=== PATIENT | male | born 1950 | race Caucasian/White ===

== ENCOUNTER 2022-05-05 10:03 | Outpatient (CLI) | payer MEDICARE, SELFPAY | END 2022-05-05 10:04 | disposition home or self-care (01) | LOC: AMB 05-27 11:09 | PROVIDERS: PCP Family Medicine; Visit Provider Emergency Medicine | DX: R06.09 Other forms of dyspnea (principal); R53.1 Weakness | CPT/HCPCS: A0425; A0427 ==

== ENCOUNTER 2022-05-05 10:43 | Inpatient (IN) | payer MEDICARE, SELFPAY ==
[2022-05-05] VITALS (22 sets, daily range): BP systolic 106–152; BP diastolic 66–99; PULSE 85–111; RESP 18–26; TEMP 36.3–36.6; O2SAT 91–98; BMI 28.7; BMI 31.2
--- NOTE | 2022-05-05 11:11 | CRLHL7_ITS ---
For Patients: As a result of the Century Cures Act, medical imaging exams and procedure reports are released immediately into your electronic medical record. You may view this report before your referring provider. If you have questions, please contact your health care provider. INDICATION: Shortness of breath TECHNIQUE: Chest 1 view. COMPARISON: None. FINDINGS/IMPRESSION: The heart is normal in size. There is mild pulmonary vascular congestion and interstitial edema. Evaluation is somewhat limited due to patient positioning, however there are hazy bibasilar opacities which could represent small pleural effusions, however superimposed consolidation is also a possibility. Dictated by Maya Barr MD @ 05/05/2022 12:45:47 PM Dictated by: Maya Barr MD @ 05/05/2022 12:45:53 (Electronically Signed)
[2022-05-05] MEDS: IPRAT-ALBUT 0.5-2.5 MG/3 ML NEB 1 NEB IH ×3 (11:15→23:52)
--- NOTE | 2022-05-05 11:17 | RESP.RT ---
Patient arrived via EMS, on there BiPAP on S/T mode. 15/5 pressures, FiO2 50%, SaO2 99%. Using their mask, which patient is comfortable on change to our BiPAP FiO2 wean to 30%, S/T mode, rate 4/minute, total rate 24/minute, vt 700ml, VE 14 L. Patient leak 13%. Patient lying right side down, appears comfortable. BBS diminished. Patient has Home Oxygen, and Albuterol nebulizer medications.
--- NOTE | 2022-05-05 11:22 | ED.GENADULT ---
HPI - General Adult General Date Seen: 05/05/22 Chief complaint: Shortness of Breath/Dyspnea Stated complaint: Shortness of breath Time Seen by Provider: 05/05/22 11:10 Source: patient History of Present Illness HPI narrative: This is a 71-year-old male with underlying COPD, oxygen dependent, who comes in by EMS with worsening shortness of breath. He tells me that he was seen in clinic 2 days ago, which would have been Thanksgiving. I clarify that with him and he says maybe was Saturday instead. In looking at the computer I do not actually see any visits since April 20, which would have been a couple of weeks ago. He tells me he is currently taking steroids and antibiotics which were prescribed a few days ago. He has had worsening shortness of breath. He says he has had subjective fevers, has not checked his temperature. Denies chest pain. Has had cough. He is normally on 2-3 L of oxygen, had been moved up to 5 L and was reportedly satting 70% on 5 L. He was started on CPAP by paramedics and improved quickly on that therapy. He was improved to 98% oxygenation on CPAP. Here, he is on BiPAP, 15/5 at 30% oxygen. He is breathing comfortably at the time of my exam. He feels better laying on his right side. He denies significant swelling in his legs, no unusual leg pain. He lives at home with his . Does continue to smoke. I reviewed with him what his wishes would be in terms of intubation, he says that he would not want to be on a ventilator should his condition worsen. Related Data Home Medications Medication Instructions Recorded Confirmed fluticasone propionate 50 g intranasal 04/06/22 04/06/22 mcg/actuation nasal spray,suspension Previous Rx's Medication Instructions Recorded azithromycin 250 mg tablet See Rx Instructions PO .COMPLEX #6 04/06/22 (Zithromax Z-Cody) tabs fluticasone furoate 200 1 inh inhalation QDAY #90 ea 04/06/22 mcg-vilanterol 25 mcg/dose inhalation powder (Breo Ellipta) ipratropium 0.5 mg-albuterol 3 mg 3 ml inhalation TID #360 mL 04/06/22 (2.5 mg base)/3 mL nebulization soln prednisone 50 mg tablet 50 mg PO QDAY #7 tabs 04/06/22 umeclidinium 62.5 mcg/actuation 1 inh inhalation QDAY #90 ea 04/06/22 blister powder for inhalation (Incruse Ellipta) Allergies Allergy/AdvReac Type Severity Reaction Status Date / Time No Known Drug Allergies Allergy Verified 04/06/22 09:11 Review of Systems Status of ROS: Reports: 10 or more systems reviewed and unremarkable except as noted in History and below PFSH [facility] Medical History Benign prostatic hyperplasia Chronic obstructive pulmonary disease Chronic sinusitis Tobacco use disorder Surgical History History of cataract extraction (10/2017) History of lumbar surgery (1983) Social History Smoking Status: Current every day smoker Little interest or pleasure in doing things: not at all Feeling down, depressed, or hopeless: not at all Exam Narrative: Exam Narrative: Vital signs as noted above. In general, an alert, elderly male. CPAP, breathing comfortably. Head: Normocephalic, atraumatic. Eyes: Pupils are equal reactive. Extraocular movements are full. Conjunctivae are normal. ENT: Exam limited secondary to CPAP. Neck: Supple without lymphadenopathy. Heart: Tachycardic and regular. No obvious murmur. Lungs: Breath sounds significantly diminished. No active wheezing. Abdomen: Protuberant and soft, seemingly nontender. Extremities: Well perfused. No edema. No calf tenderness. Pulses intact. Neurologic: Patient is alert and oriented to person and place. Speech is fluent. Face is symmetric. Moves all extremities equally. Affect: Normal. Skin: Warm and dry. Well perfused. Const: Vital Signs, click to edit/add: Vital Signs - 24 hr 05/05/22 10:51 05/05/22 11:12 05/05/22 11:12 Temperature 97.4 F L Pulse Rate Pulse Rate [Left P ulse Oximeter] 111 H Respiratory Rate 24 24 Blood Pressure Blood Pressure [Ri ght Upper Arm] 152/99 H Pulse Oximetry 98 95 Oxygen Delivery Me thod CPAP BiPAP Oxygen Flow Rate Fraction of Inspir ed Oxygen 30 30 05/05/22 11:12 05/05/22 12:18 05/05/22 11:11 Temperature Pulse Rate Pulse Rate [Left P ulse Oximeter] Respiratory Rate 24 Blood Pressure Blood Pressure [Ri ght Upper Arm] Pulse Oximetry 94 94 Oxygen Delivery Me thod BiPAP Oxygen Flow Rate Fraction of Inspir ed Oxygen 30 30 05/05/22 12:42 05/05/22 12:45 05/05/22 12:47 Temperature Pulse Rate 94 92 95 Pulse Rate [Left P ulse Oximeter] Respiratory Rate Blood Pressure 117/71 Blood Pressure [Ri ght Upper Arm] Pulse Oximetry 95 94 92 Oxygen Delivery Me thod Oxygen Flow Rate Fraction of Inspir ed Oxygen 05/05/22 12:51 Temperature Pulse Rate Pulse Rate [Left P ulse Oximeter] Respiratory Rate 20 Blood Pressure Blood Pressure [Ri ght Upper Arm] Pulse Oximetry 93 Oxygen Delivery Me thod Nasal Cannula Oxygen Flow Rate 2 Fraction of Inspir ed Oxygen Documenting provider has reviewed patient's vital signs: yes Course Course Hospital Course: For now will keep him maintained on BiPAP, we did decrease his oxygen percentage to 30%, oxygen saturations are now 94%. For now will maintain the settings. Labs an EKG, chest x-ray are pending. We will try giving a DuoNeb to see if we can increase air movement at all. Patient had a DuoNeb. I also ordered Solu-Medrol, Rocephin, azithromycin after reviewing his records. It does not appear that he was seen in the past few days. I did talk with him again about this as to whether he could have been seen somewhere else. I think he is just confusing his times. We maintained him on BiPAP for a period of time. Chest x-ray showed haziness in both bases by my review. Radiology read this is possible effusion versus consolidation. His influenza returned positive. He was COVID negative. Labs otherwise showed a normal white blood cell count of 9.3, hemoglobin of 15.8. Left shift with 86% neutrophils. No eosinophiles. D-dimer was elevated at 1.16, but I think with a positive influenza and likely pneumonia this is probably the cause for his elevated D-dimer. Discussed with hospitalist and at this time we are going to hold off on ordering CT scan. A blood gas showed a mildly elevated pCO2 of 56, likely not suggestive of CO2 narcosis. He is not significantly acidotic, pCO2 is 7.34. Metabolic panel is unremarkable, sodium is just a touch low at 133 potassium is normal, BUN normal, creatinine normal. LFTs are unremarkable. CRP is mildly elevated at 3. BNP is a little bit high at 795. Troponin was normal at 0.01. He did have an EKG which by my review showed a normal sinus rhythm, ventricular rate of 93 beats per minute. He does have marked T-wave and ST abnormalities in the lateral leads, with some depression and T-wave inversion however this is unchanged compared to an EKG dated . Within normal troponin and unchanged EKG I do not think this represents an acute coronary process. Patient was actually able to be weaned off of BiPAP per Respiratory therapy and is now on O2 by nasal cannula with O2 sats of 93%. He will be hospitalized for observation, antibiotics and respiratory care while we see how he does with his influenza and pneumonia. Vital Signs Vital signs: Initial Vital Signs Temperature 97.4 F L 05/05/22 10:51 Temperature Source Temporal Artery Scan 05/05/22 10:51 Pulse Rate 111 H 05/05/22 10:51 Respiratory Rate 24 05/05/22 10:51 Blood Pressure 152/99 H 05/05/22 10:51 Blood Pressure Mean 116 05/05/22 10:51 Blood Pressure Position Right Lateral 05/05/22 10:51 Pulse Oximetry 98 05/05/22 10:51 Oxygen Delivery Method 05/05/22 10:51 Vital Signs Temperature 97.4 F L 05/05/22 10:51 Pulse Rate 111 H 05/05/22 10:51 Respiratory Rate 24 05/05/22 10:51 Blood Pressure 152/99 H 05/05/22 10:51 Pulse Oximetry 98 05/05/22 10:51 Oxygen Delivery Method 05/05/22 10:51 Temperature 97.4 F L 05/05/22 10:51 Pulse Rate 95 05/05/22 12:47 Respiratory Rate 20 05/05/22 12:51 Blood Pressure 117/71 05/05/22 12:47 Pulse Oximetry 93 05/05/22 12:51 Oxygen Delivery Method 05/05/22 12:51 Oxygen Flow Rate 2 05/05/22 12:51 Fraction of Inspired Oxygen 30 05/05/22 12:18 Medical Decision Making Lab Data Labs: Lab Results 05/05/22 05/05/22 05/05/22 Range/Units 11:46 12:00 12:00 WBC 9.26 (4.50-11.00) K/uL RBC 5.25 (4.30-5.90) m/uL Hgb 15.8 (13.5-17.5) gm/dL Hct 47.4 (37.0-53.0) % MCV 90 (80-100) fL MCH 30 (26-34) pg MCHC 33 (32-36) gm/dL RDW Coeff of Kiki 12.7 (11.5-15.5) % Plt Count 245 (140-440) K/uL Neut % (Auto) 85.8 H (42.0-72.0) % Lymph % (Auto) 5.7 L (20-44) % [place] % (Auto) 7.7 (0.0-11.0) % Eos % (Auto) 0.0 (0.0-7.0) % Baso % (Auto) 0.0 (0.0-3.0) % Neut # (Auto) 7.90 H (1.7-7.0) K/uL Lymph # (Auto) 0.50 L (0.90-2.90) K/uL [place] # (Auto) 0.70 (0.00-0.90) K/UL Eos # (Auto) 0.00 (0.00-0.50) K/uL Baso # (Auto) 0.00 (0.00-0.30) K/uL Abs Immat Gran (auto) 0.07 (0.00-0.30) K/uL Imm/Tot Granulo (auto) 0.8 % D-Dimer Quant (PE/DVT) (0.00-0.50) ug/ml VBG pH (7.32-7.43) VBG pCO2 (40-50) mmHG VBG pO2 (25-47) mmHG VBG HCO3 (21-28) mmol/L Sodium 133 L (135-149) mmol/L Potassium 4.4 (3.6-5.1) mmol/L Chloride 99 (96-114) mmol/L Carbon Dioxide 29 (20-32) mmol/L BUN 21 (7-30) mg/dL Creatinine 0.7 (0.5-1.5) mg/dL Estimated Creat Clear 49.39 Estimated GFR 98 ml/min Glucose 90 (60-115) mg/dL Lactate (0.5-1.9) mmol/L Calcium 8.2 L (8.4-10.6) mg/dL Total Bilirubin (0.1-1.5) mg/dL Direct Bilirubin (0.0-0.5) mg/dL AST (12-35) U/L ALT (4-50) U/L Alkaline Phosphatase (40-150) U/L Troponin I (0.01-0.04) ng/mL C-Reactive Protein 3.0 H (0.5-1.0) mg/dL NT-Pro-B Natriuret Pep (0-125) PG/mL Total Protein (6.0-8.3) g/dL Albumin (3.3-5.0) g/dL SARS-CoV-2 (PCR) Negative SARS-CoV-2 (Negative) Influenza Type A (PCR) POSITIVE PCR FLU A A (Negative) Influenza Type B (PCR) Negative PCR FLU B (Negative) RSV (PCR) Negative PCR RSV (Negative) 05/05/22 05/05/22 05/05/22 Range/Units 12:00 12:00 12:00 WBC (4.50-11.00) K/uL RBC (4.30-5.90) m/uL Hgb (13.5-17.5) gm/dL Hct (37.0-53.0) % MCV (80-100) fL MCH (26-34) pg MCHC (32-36) gm/dL RDW Coeff of Kiki (11.5-15.5) % Plt Count (140-440) K/uL Neut % (Auto) (42.0-72.0) % Lymph % (Auto) (20-44) % [place] % (Auto) (0.0-11.0) % Eos % (Auto) (0.0-7.0) % Baso % (Auto) (0.0-3.0) % Neut # (Auto) (1.7-7.0) K/uL Lymph # (Auto) (0.90-2.90) K/uL [place] # (Auto) (0.00-0.90) K/UL Eos # (Auto) (0.00-0.50) K/uL Baso # (Auto) (0.00-0.30) K/uL Abs Immat Gran (auto) (0.00-0.30) K/uL Imm/Tot Granulo (auto) % D-Dimer Quant (PE/DVT) 1.16 H (0.00-0.50) ug/ml VBG pH 7.345 (7.32-7.43) VBG pCO2 56 H (40-50) mmHG VBG pO2 39.4 (25-47) mmHG VBG HCO3 30 H (21-28) mmol/L Sodium (135-149) mmol/L Potassium (3.6-5.1) mmol/L Chloride (96-114) mmol/L Carbon Dioxide (20-32) mmol/L BUN (7-30) mg/dL Creatinine (0.5-1.5) mg/dL Estimated Creat Clear Estimated GFR ml/min Glucose (60-115) mg/dL Lactate 1.1 (0.5-1.9) mmol/L Calcium (8.4-10.6) mg/dL Total Bilirubin 0.6 (0.1-1.5) mg/dL Direct Bilirubin 0.4 (0.0-0.5) mg/dL AST 40 H (12-35) U/L ALT 22 (4-50) U/L Alkaline Phosphatase 94 (40-150) U/L Troponin I 0.01 (0.01-0.04) ng/mL C-Reactive Protein (0.5-1.0) mg/dL NT-Pro-B Natriuret Pep 795 H (0-125) PG/mL Total Protein 6.8 (6.0-8.3) g/dL Albumin 3.9 (3.3-5.0) g/dL SARS-CoV-2 (PCR) (Negative) Influenza Type A (PCR) (Negative) Influenza Type B (PCR) (Negative) RSV (PCR) (Negative) Discharge Plan Discharge Prescriptions: No Action fluticasone propionate 50 mcg/actuation spray,suspension intranasal Incruse Ellipta 62.5 mcg/actuation blister with device 1 inh inhalation QDAY Qty: 90 3RF fluticasone furoate-vilanterol [Breo Ellipta] 200-25 mcg/dose blister with device 1 inh inhalation QDAY Qty: 90 3RF ipratropium-albuterol 0.5 mg-3 mg(2.5 mg base)/3 mL solution for nebulization 3 ml inhalation TID Qty: 360 3RF azithromycin [Zithromax Z-Cody] 250 mg tablet See Rx Instructions PO .COMPLEX Qty: 6 1RF Rx Instructions: For 250 mg dose pack: take 500 mg today (day 1), then 250 mg for 4 days (days 2-5) PO prednisone 50 mg tablet 50 mg PO QDAY Qty: 7 1RF Follow Up/Referrals: Jose E Welsh MD [Primary Care Provider] -
--- NOTE | 2022-05-05 11:35 | RESP.RT ---
DuoNeb given inline with BiPAP on same settings with small volume nebulizer, and Medical Air Flow Meter at 7 Lpm. Patient tolerated well. Heart Rate stable at 95-100/minute, SaO2 95%, respiratory rate 24/minute.
[2022-05-05] MEDS: METHYLPREDNISOLONE SOD SUCC 62.5 MG/ML (125) 125 MG IVP (12:00)
[2022-05-05] MEDS: cefTRIAXone 1 GM in 0.9 % SODIUM CHLORIDE Mini-bag 100 ML IVPB (12:02)
[2022-05-05 12:10] LABS: HCO3 VBG 30 mmol/L (21-28); Lactate* 1.1 mmol/L (0.5-1.9); PCO2 VBG 56 mmHG (40-50); PO2 VBG 39.4 mmHG (25-47); pH VBG 7.345 (7.32-7.43)
[2022-05-05 12:13] LABS: Hematocrit 47.4 % (37.0-53.0); Hemoglobin* 15.8 gm/dL (13.5-17.5); Immature Granulocytes Abs Auto 0.07 K/uL (0.00-0.30); Immature Granulocytes Pct Auto 0.8 %; Lymphocytes Percent Auto 5.7 % (20-44); Mean Corpuscular HGB Conc 33 gm/dL (32-36); Mean Corpuscular Hemoglobin 30 pg (26-34); Mean Corpuscular Volume 90 fL (80-100); Monocytes Percent Auto 7.7 % (0.0-11.0); Neutrophils Percent Auto 85.8 % (42.0-72.0); Platelet Count* 245 K/uL (140-440); RDW Coefficient of Variation % 12.7 % (11.5-15.5); Red Blood Count 5.25 m/uL (4.30-5.90); White Blood Count* 9.26 K/uL (4.50-11.00)
[2022-05-05 12:15] LABS: Slide Review Reflex No
--- NOTE | 2022-05-05 12:20 | RESP.RT ---
Wean BiPAP; decrease IPAP to 10 cm pressure
[2022-05-05 12:35] LABS: Albumin* 3.9 g/dL (3.3-5.0)
[2022-05-05 12:36] LABS: Chloride* 99 mmol/L (96-114); Potassium* 4.4 mmol/L (3.6-5.1); Sodium* 133 mmol/L (135-149)
[2022-05-05 12:36] LABS: PCR FLU A POSITIVE PCR FLU A (Negative); PCR FLU B Negative PCR FLU B (Negative); PCR RSV Negative PCR RSV (Negative)
[2022-05-05 12:37] LABS: SARS PCR* Negative SARS-CoV-2 (Negative)
[2022-05-05 12:38] LABS: Alkaline Phosphatase* 94 U/L (40-150); Aspartate Amino Transferase* 40 U/L (12-35); Bilirubin Direct* 0.4 mg/dL (0.0-0.5); Bilirubin Total* 0.6 mg/dL (0.1-1.5); D Dimer Quantitative* 1.16 ug/ml (0.00-0.50); Total Protein* 6.8 g/dL (6.0-8.3)
[2022-05-05 12:39] LABS: Alanine Aminotransferase* 22 U/L (4-50); Creatinine* 0.7 mg/dL (0.5-1.5); Est. Creatinine Clearance* 49.39; Estimated Glomerular Filt Rate 98 ml/min
[2022-05-05 12:40] LABS: Blood Urea Nitrogen* 21 mg/dL (7-30); Calcium* 8.2 mg/dL (8.4-10.6); Carbon Dioxide* 29 mmol/L (20-32); Glucose* 90 mg/dL (60-115)
--- NOTE | 2022-05-05 12:46 | RESP.RT ---
Change to OxiMizer nasal pendant; SaO2 93%, respiratory rate 20/minute, Heart rate 110/minute. Good loose, moist, congested, non productive cough. Patient alert, orientated.
[2022-05-05 12:48] LABS: NT Pro B Type NatriureticPept* 795 PG/mL (0-125)
[2022-05-05 12:51] LABS: Troponin I* 0.01 ng/mL (0.01-0.04)
[2022-05-05] MEDS: AZITHROMYCIN 250 MG TABLET 500 MG PO (13:30)
--- NOTE | 2022-05-05 14:49 | ED.NURSE ---
Phoned to provide update.
--- NOTE | 2022-05-05 15:08 | RESP.RT ---
GOAL; maintain Patient on OxyMizer at 2 Lpm with SaO2 >90%. BiPAP on Stand-by at doorway, patient may return to BiPAP as needed, starting at FiO2 40%, IPAP 15, EPAP 5. Patient was transferred to Med/Surg on OxyMizer 2 Lpm with out issue
--- NOTE | 2022-05-05 16:19 | P.IMHP_ITS ---
Hospitalist- H&P: HPI History of Present Illness Time Seen by Provider: 16:20 Date Seen: 05/05/22 Chief complaint: Shortness of breath Narrative: This is a 71-year-old male with oxygen-dependent COPD and ongoing tobacco use who is here for worsening shortness of breath. He is chronically short of breath especially with exertion, but on Saturday he felt like he was getting a virus and developed sudden onset of worsening dyspnea, cough, chest congestion with thick phlegm, and nasal congestion. Did not have a headache or chest pain. He denies chills, but may have had some subjective fevers. Yesterday he started taking his rescue pack which includes prednisone and a Z-Cody. He tells me that he normally has to take 2 Z-Paks back to back to get rid of a bad cold. Despite taking this yesterday, he continued to feel worse and was very dyspneic today as well as hypoxic despite turning his oxygen up. He called EMS and was started on CPAP when they arrived. He does not have CPAP or BiPAP at home. In the emergency room he was put on BiPAP at 15/5 with 30% FiO2 and after a few hours was able to wean to oxygen via nasal cannula. He was resting when I 1st came in to see him and did say that he felt better than when he 1st came in. He lives in a home with his , 2 Adult sons, their wives and children. His daughter in-law works in a daycare facility. He tells me that they all get sick a lot there because of the virus is the little kids bring through. Also he continues to smoke about a half a pack of cigarettes per day. He tells me he is done and does not want to smoke anymore because this episode has been so bad. He is going to quit cold turkey. He tells me this will be a challenge because his smokes like a chimney, but she is only around 3 days a week because she is mostly on the road for work. When we discussed secondhand smoke, he did not like the idea of having to approach her to talk about having her smoke outside or at least not around him. When we discussed code status, he is adamant that he does not want to be intubated or resuscitated. Review of Systems Status of ROS: Reports: 10 or more systems reviewed and unremarkable except as noted in History and below PFSH PFS Medical History (Updated 05/05/22 @ 20:06 by Eleanor Devi MD) Benign prostatic hyperplasia Chronic obstructive pulmonary disease Chronic sinusitis CO2 retention Tobacco use disorder Surgical History (Updated 05/05/22 @ 19:53 by Eleanor Devi MD) History of cataract extraction (10/2017) History of lumbar surgery (1983) Social History (Updated 05/05/22 @ 16:30 by Eleanor Devi MD) Narrative: . Had cut smoking down to 1 pack every other day, says he's done now and wants to quit, but his smokes like a chimney. She is on the road most of the time and is home about 3 days a week. One or fewer drinks of alcohol per year. Denies recreational drugs other than having recently tried CBD gummies in the last 3 weeks. DNR/DNI. Highest level of school completed/degree received: high school graduate Smoking Status: Current every day smoker What tobacco products do you use: cigarettes Smoking packs per day: 1 Smoking cigarettes per day: 20.0 Years smoked: 52 Smoking pack-years: 52.00 Do you use any of these nicotine containing products: None Second hand tobacco smoke exposure: Yes How often do you have a drink containing alcohol: monthly or less Alcohol type: wine How often do you have six or more drinks on one occasion: Never AUDIT-C Alcohol total score: 1 Non-prescribed substance use: denies use Caffeine: Yes (2 cups daily) Little interest or pleasure in doing things: not at all Feeling down, depressed, or hopeless: not at all service: No Meds Home Medications and Allergies Home Medications Medication Instructions Recorded Confirmed Type fluticasone propionate 50 1 spray intranasal Q12H PRN 04/06/22 05/05/22 History mcg/actuation nasal spray,suspension Allergies Allergy/AdvReac Type Severity Reaction Status Date / Time No Known Drug Allergies Allergy Verified 04/06/22 09:11 Exam Narrative: Exam Narrative: General: Laying comfortably on his right side, he refuses to move because he is concerned it will take him a long time to recover with any movement. Moderate respiratory distress. Use of accessory muscles noted. Able to give me history with breaths in between some of the words. Awake alert oriented x3. HEENT: Normocephalic atraumatic, pupils equally round and reactive to light and accommodation. Oropharynx clear. Mucous membranes are dry. No cervical lymphadenopathy, thyromegaly or carotid bruits. Cardiovascular: Mildly tachycardic, regular. No murmurs, gallops, or rubs. Chest: Poor air movement bilaterally. Scattered expiratory wheezes, although I suspect he is too tight to wheeze at this point, no crackles. Abdomen: Bowel sounds present. I was unable to get a good abdominal exam because he did not want to move off his right side. Soft, nontender from left- sided palpation. Extremities: No edema, no cyanosis or clubbing. Const: Vital Signs, click to edit/add: Vital Signs - 24 hr 05/05/22 10:51 05/05/22 11:12 05/05/22 11:12 Temperature 97.4 F L Pulse Rate Pulse Rate [Left B rachial] Pulse Rate [Left P ulse Oximeter] 111 H Respiratory Rate 24 24 Blood Pressure Blood Pressure [Le ft Arm] Blood Pressure [Ri ght Upper Arm] 152/99 H Pulse Oximetry 98 95 Oxygen Delivery Me thod CPAP BiPAP Oxygen Flow Rate Fraction of Inspir ed Oxygen 30 30 05/05/22 11:12 05/05/22 12:18 05/05/22 11:11 Temperature Pulse Rate Pulse Rate [Left B rachial] Pulse Rate [Left P ulse Oximeter] Respiratory Rate 24 Blood Pressure Blood Pressure [Le ft Arm] Blood Pressure [Ri ght Upper Arm] Pulse Oximetry 94 94 Oxygen Delivery Me thod BiPAP Oxygen Flow Rate Fraction of Inspir ed Oxygen 30 30 05/05/22 12:42 05/05/22 12:45 05/05/22 12:47 Temperature Pulse Rate 94 92 95 Pulse Rate [Left B rachial] Pulse Rate [Left P ulse Oximeter] Respiratory Rate Blood Pressure 117/71 Blood Pressure [Le ft Arm] Blood Pressure [Ri ght Upper Arm] Pulse Oximetry 95 94 92 Oxygen Delivery Me thod Oxygen Flow Rate Fraction of Inspir ed Oxygen 05/05/22 12:51 05/05/22 12:48 05/05/22 13:00 Temperature Pulse Rate 88 94 Pulse Rate [Left B rachial] Pulse Rate [Left P ulse Oximeter] Respiratory Rate 20 Blood Pressure Blood Pressure [Le ft Arm] Blood Pressure [Ri ght Upper Arm] Pulse Oximetry 93 93 92 Oxygen Delivery Me thod Nasal Cannula Nasal Cannula Oxygen Flow Rate 2 3 Fraction of Inspir ed Oxygen 05/05/22 13:06 05/05/22 13:07 05/05/22 13:15 Temperature Pulse Rate 91 91 89 Pulse Rate [Left B rachial] Pulse Rate [Left P ulse Oximeter] Respiratory Rate Blood Pressure Blood Pressure [Le ft Arm] Blood Pressure [Ri ght Upper Arm] Pulse Oximetry 97 97 98 Oxygen Delivery Me thod Oxygen Flow Rate Fraction of Inspir ed Oxygen 05/05/22 13:20 05/05/22 13:30 05/05/22 13:35 Temperature Pulse Rate 88 94 87 Pulse Rate [Left B rachial] Pulse Rate [Left P ulse Oximeter] Respiratory Rate Blood Pressure Blood Pressure [Le ft Arm] Blood Pressure [Ri ght Upper Arm] Pulse Oximetry 98 94 94 Oxygen Delivery Me thod Oxygen Flow Rate Fraction of Inspir ed Oxygen 05/05/22 13:45 05/05/22 15:36 Temperature 97.9 F Pulse Rate 85 Pulse Rate [Left B rachial] 104 H Pulse Rate [Left P ulse Oximeter] Respiratory Rate 26 H Blood Pressure Blood Pressure [Le ft Arm] 137/83 Blood Pressure [Ri ght Upper Arm] Pulse Oximetry 96 91 Oxygen Delivery Me thod Non Rebreather Mas k Oxygen Flow Rate 2 Fraction of Inspir ed Oxygen Hospitalist - H&P: Result Labs Labs: Short CBC 05/05/22 Range/Units 12:00 WBC 9.26 (4.50-11.00) K/uL Hgb 15.8 (13.5-17.5) gm/dL Hct 47.4 (37.0-53.0) % Plt Count 245 (140-440) K/uL BMP 05/05/22 12:00 Sodium 133 L Potassium 4.4 Chloride 99 Carbon Dioxide 29 BUN 21 Creatinine 0.7 Glucose 90 Calcium 8.2 L Cardiac Enzymes 05/05/22 Range/Units 12:00 Troponin I 0.01 (0.01-0.04) ng/mL Liver Function 05/05/22 Range/Units 12:00 Total Bilirubin 0.6 (0.1-1.5) mg/dL Direct Bilirubin 0.4 (0.0-0.5) mg/dL AST 40 H (12-35) U/L ALT 22 (4-50) U/L Alkaline Phosphatase 94 (40-150) U/L Albumin 3.9 (3.3-5.0) g/dL Ordering Physician: Fior Ordonez MD Date of Service: 05/05/22 Procedure(s): XR chest 1V portable Accession Number(s): [id number] cc: Fior Ordonez MD; Jose E Welsh M.D.~ For Patients: As a result of the Century Cures Act, medical imaging exams and procedure reports are released immediately into your electronic medical record. You may view this report before your referring provider. If you have questions, please contact your health care provider. INDICATION: Shortness of breath TECHNIQUE: Chest 1 view. COMPARISON: None. FINDINGS/IMPRESSION: The heart is normal in size. There is mild pulmonary vascular congestion and interstitial edema. Evaluation is somewhat limited due to patient positioning, however there are hazy bibasilar opacities which could represent small pleural effusions, however superimposed consolidation is also a possibility. Dictated by Maya Barr MD @ 05/05/2022 12:45:47 PM Dictated by: Maya Barr MD @ 05/05/2022 12:45:53 (Electronically Signed) Assessment and Plan Assessment and plan (1) Acute on chronic respiratory failure with hypoxia and hypercapnia: Problem comment: secondary to COPD exacerbation and influenza A Status: Acute Assessment and Plan: Admit. Restart BiPAP since he is using his accessory muscles and will likely wear out overnight without this extra ventillatory support. (2) Influenza A: Status: Acute Assessment and Plan: Start tamiflu for influenza A with hypoxia. (3) COPD exacerbation: Status: Acute Assessment and Plan: Was given solumedrol in ER and took a dose of prednisone at home yesterday. Continue solumedrol for tonight and transition to prednisone in the morning (already written for). BiPAP as above. Scheduled duonebs and prn albuterol nebs. (4) Lung consolidation: Problem comment: possible on CXR 05/05/22 Status: Acute Assessment and Plan: Treat as possible community acquired pneumonia with ceftriaxone and azithromycin. (5) Chronic obstructive pulmonary disease: Problem comment: O2 dependent. NOT good judgement on self-titration per Dr. Ramey 12/15/20 Hosp DS note. Declined referral to pulmonology in the past Status: Chronic (6) Tobacco use disorder: Status: Chronic Assessment and Plan: Patient himself brought up wanting to quit. We spent 10 minutes discussing this. I spoke with him about secondhand smoke (from his ), triggers and options. He wanted to try a nicotine patch. (7) CO2 retention: Status: Chronic Assessment and Plan: Goal O2 sats are 88-89% to try to prevent CO2 retention. Plan VTE prophylaxis: Low-dose nightly enoxaparin, TEDs, and SCDs.
[2022-05-05] MEDS: NICOTINE 14 mg PATCH 1 PATCH TRANSDERMA (17:30)
--- NOTE | 2022-05-05 18:15 | PC.NURSE ---
shift note; pt to rm c[facility]4 pt lethargic on admit. pt prefers to lay on rt side. pt states laying on his back or sitting up hinders his ability to breath. pt on 1L O2 on nasal oxymizer. LS with fine crkls posterior RLL; dim throughout. Pt very tachypneic with rr 26 -28 on arrival. IV to lt hand patent.
[2022-05-05] MEDS: METHYLPREDNISOLONE SOD SUCC 62.5 MG/ML (125) 60 MG IVP ×2 (20:36→23:52)
[2022-05-05] MEDS: ENOXAPARIN 40 MG/0.4 ML INJ SUBCUT (21:43)
[2022-05-05] MEDS: OSELTAMIVIR 30 MG CAPSULE PO (21:44)
[2022-05-06 02:58] VITALS: PULSE 80; RESP 18; TEMP 36.6; O2SAT 98
--- NOTE | 2022-05-06 04:51 | PC.NURSE ---
[id number]: patient appears to have slept almost entire shift. maintains O2 sats above 90% on 1.5-2 L oximizer NC. occasional cough, no c/o pain. c/o feeling very worn out
[2022-05-06 08:10] VITALS: BP 106/64; PULSE 72; RESP 22; TEMP 36.6; O2SAT 91
--- NOTE | 2022-05-06 09:16 | CRLHL7_ITS ---
For Patients: As a result of the Century Cures Act, medical imaging exams and procedure reports are released immediately into your electronic medical record. You may view this report before your referring provider. If you have questions, please contact your health care provider. Indication: Shortness of breath and hypoxia Technique: Volumetric multidetector CT images of the chest were obtained after the administration of IV contrast. 95 cc Isovue 370 low osmolar intravenous contrast Comparison: None available. Findings: The thoracic inlet and thyroid gland are unremarkable. The thoracic aorta is non aneurysmal with moderate scattered atherosclerotic calcification. There is no central filling defect to suggest pulmonary embolism. There are mildly prominent mediastinal and hilar lymph nodes with extensive calcified hilar and right paratracheal lymph nodes. There is marked central bronchial thickening with mucoid impaction of the lower lobe bronchi. There is moderate to severe emphysematous changes of the upper lobes left greater than right with basilar atelectasis and parenchymal scarring. There is no dense consolidation, effusion or pneumothorax. There is demonstration of a small nodule within the peripheral right lower lobe measuring 5.9 millimeters. The partially visualized upper abdomen demonstrates cholelithiasis. There are calcified splenic granulomas. The thoracic vertebral body heights demonstrate chronic endplate Schmorl`s defects and minimal anterosuperior deformity of the superior T5 level. There is flowing anterior osteophytosis. There is no significant spondylolisthesis or displaced fracture. Impression: Moderate to severe emphysematous changes of the predominantly upper lobes left greater than right with extensive central bronchial thickening and traction bronchiectasis commensurate with chronic bronchitis changes. No dense consolidation or pulmonary embolus. Calcified mediastinal and hilar lymph nodes likely representing sequela of granulomatous infection. Please note that all CT scans at this facility use dose modulation, iterative reconstruction, and/or weight-based dosing when appropriate to reduce radiation dose to as low as reasonably achievable. Dictated by Klever Tay MD @ 05/06/2022 4:35:49 PM (Electronically Signed)
[2022-05-06 10:09] LABS: HCO3 VBG 30 mmol/L (21-28); PCO2 VBG 48 mmHG (40-50); PO2 VBG 65.3 mmHG (25-47); pH VBG 7.401 (7.32-7.43)
[2022-05-06 10:12] LABS: Hematocrit 47.4 % (37.0-53.0); Hemoglobin* 15.9 gm/dL (13.5-17.5); Immature Granulocytes Abs Auto 0.01 K/uL (0.00-0.30); Immature Granulocytes Pct Auto 0.1 %; Lymphocytes Percent Auto 12.6 % (20-44); Mean Corpuscular HGB Conc 34 gm/dL (32-36); Mean Corpuscular Hemoglobin 30 pg (26-34); Mean Corpuscular Volume 89 fL (80-100); Monocytes Percent Auto 4.4 % (0.0-11.0); Neutrophils Percent Auto 82.9 % (42.0-72.0); Platelet Count* 261 K/uL (140-440); RDW Coefficient of Variation % 12.5 % (11.5-15.5); Red Blood Count 5.35 m/uL (4.30-5.90); Slide Review Reflex No; White Blood Count* 7.09 K/uL (4.50-11.00)
[2022-05-06 10:25] LABS: Chloride* 98 mmol/L (96-114); Potassium* 4.3 mmol/L (3.6-5.1); Sodium* 132 mmol/L (135-149)
[2022-05-06 10:27] LABS: Creatinine* 0.6 mg/dL (0.5-1.5); Est. Creatinine Clearance* 71.12; Estimated Glomerular Filt Rate 103 ml/min
[2022-05-06 10:28] LABS: Blood Urea Nitrogen* 28 mg/dL (7-30); Calcium* 8.4 mg/dL (8.4-10.6); Carbon Dioxide* 28 mmol/L (20-32); Glucose* 115 mg/dL (60-115)
[2022-05-06 10:38] LABS: NT Pro B Type NatriureticPept* 831 PG/mL (0-125)
[2022-05-06] MEDS: predniSONE 10 MG TABLET 60 MG PO (10:42)
[2022-05-06] MEDS: AZITHROMYCIN 250 MG TABLET 500 MG PO (10:43)
[2022-05-06 10:45] LABS: Procalcitonin* 0.11 ng/mL (<0.50)
[2022-05-06] MEDS: OXYCODONE 5 MG TABLET PO (10:47)
[2022-05-06] MEDS: ACETAMINOPHEN 325 MG TABLET 650 MG PO (10:47)
[2022-05-06 11:14] VITALS: RESP 22; O2SAT 92
--- NOTE | 2022-05-06 11:18 | RESP.RT ---
Patient lying in bed, on right side, favors lying on this side. BiPAP was not used during the night, has been discontinued. Patient on OxyMizer Pendant at 3 Lpm with SaO2 92%. Patient was on OxyMizer during the night maintaining SaO2 >90% with flows 1.5-3 Lpm. Patient has fair, coarse, moist non-productive cough. Able to clear secretions when present. Patient states he is quitting smoking [place] when asked about smoking cessation. Patient has Home Oxygen using as needed. Patient does have portable Oxygen unit. Patient has home respiratory medications, states uses them regularly. Will continue to follow.
[2022-05-06 12:00] VITALS: PULSE 79; RESP 22; O2SAT 91
[2022-05-06] MEDS: OSELTAMIVIR 30 MG CAPSULE PO ×2 (12:12→21:06)
[2022-05-06] MEDS: IPRAT-ALBUT 0.5-2.5 MG/3 ML NEB 1 NEB IH ×2 (12:13→16:42)
[2022-05-06] MEDS: cefTRIAXone 1 GM in 0.9 % SODIUM CHLORIDE Mini-bag 100 ML IVPB (12:53)
--- NOTE | 2022-05-06 13:35 | P.IMPN_ITS ---
Progress Note: A&P Assessment and plan (1) Acute on chronic respiratory failure with hypoxia and hypercapnia: Problem details: secondary to COPD exacerbation and influenza A Status: Acute (2) Lung consolidation: Problem details: possible on CXR 05/05/22 Status: Acute (3) Influenza A: Status: Acute (4) Chronic sinusitis: Status: Chronic (5) Benign prostatic hyperplasia: Status: Chronic (6) Chronic obstructive pulmonary disease: Problem details: O2 dependent. NOT good judgement on self-titration per Dr. Ramey 12/15/20 Hosp DS note. Declined referral to pulmonology in the past Status: Chronic Plan Plan for 05/06 check VBG, cbc, bmp check CT PE study transition to prednisone change to doxycyline mucinex/tessalon discussed with Time Spent With Patient Total time spent: 25 Subjective Date Seen: 05/06/22 Interval history: patient endorses sob cough fatigue decreased energy Exam Narrative: Exam Narrative: Gen: in bed no distress HEENT NCAT EOMI MMM CV: RRR s1 s2 Lungs: Diminished Abd: soft, nt,nd Const: Vital Signs, click to edit/add: Vital Signs - 24 hr 05/05/22 13:45 05/05/22 15:36 05/05/22 16:42 Temperature 97.9 F 97.9 F Pulse Rate 85 Pulse Rate [Left B rachial] 104 H 104 H Respiratory Rate 26 H 26 H Blood Pressure [Le ft Arm] 137/83 137/83 Pulse Oximetry 96 91 91 Oxygen Delivery Me thod Non Rebreather Mas k Non Rebreather Mas k Oxygen Flow Rate 2 1 05/05/22 16:44 05/05/22 15:30 05/05/22 19:00 Temperature 97.6 F Pulse Rate Pulse Rate [Left B rachial] 88 Respiratory Rate 26 H 22 Blood Pressure [Le ft Arm] 119/66 Pulse Oximetry 93 91 93 Oxygen Delivery Me thod [place] Nasal Ca nnula [place] Nasal Ca nnula Oxygen Flow Rate 1 1.5 05/05/22 23:00 05/05/22 23:00 05/06/22 02:58 Temperature 98 F 98 F Pulse Rate Pulse Rate [Left B rachial] 86 86 80 Respiratory Rate 18 18 18 Blood Pressure [Le ft Arm] 106/68 Pulse Oximetry 92 98 Oxygen Delivery Me thod [place] Nasal Ca nnula [place] Nasal Ca nnula Oxygen Flow Rate 1 1.5 05/06/22 11:14 05/06/22 11:14 Temperature Pulse Rate Pulse Rate [Left B rachial] Respiratory Rate 22 Blood Pressure [Le ft Arm] Pulse Oximetry 92 92 Oxygen Delivery Me thod Nasal Cannula Nasal Cannula Oxygen Flow Rate 3 3 Labs Labs: Laboratory Results - last 24 hr 05/06/22 05/06/22 05/06/22 09:13 09:13 09:17 WBC 7.09 RBC 5.35 Hgb 15.9 Hct 47.4 MCV 89 MCH 30 MCHC 34 RDW Coeff of Kiki 12.5 Plt Count 261 Neut % (Auto) 82.9 H Lymph % (Auto) 12.6 L [place] % (Auto) 4.4 Eos % (Auto) 0.0 Baso % (Auto) 0.0 Neut # (Auto) 5.90 Lymph # (Auto) 0.90 [place] # (Auto) 0.30 Eos # (Auto) 0.00 Baso # (Auto) 0.00 Abs Immat Gran (auto) 0.01 Imm/Tot Granulo (auto) 0.1 VBG pH 7.401 VBG pCO2 48 VBG pO2 65.3 H VBG HCO3 30 H Sodium Potassium Chloride Carbon Dioxide BUN Creatinine Estimated Creat Clear Estimated GFR Glucose Calcium NT-Pro-B Natriuret Pep 831 H Procalcitonin 0.11 05/06/22 09:30 WBC RBC Hgb Hct MCV MCH MCHC RDW Coeff of Kiki Plt Count Neut % (Auto) Lymph % (Auto) [place] % (Auto) Eos % (Auto) Baso % (Auto) Neut # (Auto) Lymph # (Auto) [place] # (Auto) Eos # (Auto) Baso # (Auto) Abs Immat Gran (auto) Imm/Tot Granulo (auto) VBG pH VBG pCO2 VBG pO2 VBG HCO3 Sodium 132 L Potassium 4.3 Chloride 98 Carbon Dioxide 28 BUN 28 Creatinine 0.6 Estimated Creat Clear 71.12 Estimated GFR 103 Glucose 115 Calcium 8.4 NT-Pro-B Natriuret Pep Procalcitonin
--- NOTE | 2022-05-06 14:10 | REH.PT ---
PT evaluation held on Saturday per patient request and then due to CT scan, and then patient request. Will complete evaluation tomorrow.
--- NOTE | 2022-05-06 15:32 | REH.OT ---
OT: Order received, chart reviewed, pt unavailable x2, pt cares, then CT scan. Will reschedule eval.
--- NOTE | 2022-05-06 16:40 | PC.NURSE ---
Pt irritable in am, don't raise the head of my bed. Pt stated he wanted to walk in to the BR to have a BM. RN mentioned he had not been out of bed all night and had been using the urinal. Pt provided with walker, GB (which he refused) and was able to sit on the edge of the bed. RN had SPENCER Lee present to assist with transfer. Pt sat on bed for 20-30 seconds and then said I have to lay back down. RN offered BSC I'm to dizzy to sit up on the commode. Pt unable to roll over on to fracture martin d/to hx of an old spinal fracture. Pt was incontinent of a large loose BM, neto cares provided by [facility], large blue diaper in place. (Soiled pants in a bag in patient's closet). Evaluation by Dr. Tolentino. New IV site #18 Gauge to left AC for CT contrast placed by Heather HOLLEY house supervisisor. Pt feel asleep and awakened for scheduled morning meds. RN provided oxycodone 5mg with tylenol prn as a preprocedure med for scheduled CT Scan to r/o pleural effusion and PE. When CT scan arrived pt stated he had soiled himself and couldn't go for the test. Pericares provided and fresh diaper. New orders for IV Rocephin, po zithromax and nebulizer initiated while waiting for CT scan transporters to return. Report to Lucero Trujillo RN for evening shift. Pt transported via stretcher at 3PM for CT scan.
[2022-05-06] MEDS: NICOTINE 14 mg PATCH 1 PATCH TRANSDERMA (16:42)
[2022-05-06] MEDS: DOXYCYCLINE HYCLATE 100 MG CAPSULE PO (21:05)
[2022-05-06] MEDS: MELATONIN 3 MG TABLET PO (21:06)
[2022-05-06] MEDS: ENOXAPARIN 40 MG/0.4 ML INJ SUBCUT (21:06)
--- NOTE | 2022-05-06 21:57 | PC.NURSE ---
Shift [id number]- Patient lays in bed on right side throughout shift. He states he feels a lot better since getting oxycodone. also notes that he seems a lot better and calmer- no longer panic breathing. Patient states he needs to have a BM, but is adamant about not sitting up- either to walk to bathroom or use commode- he also refuses to use bedpan. Instead, he gives instructions to lay a chux under him and to remove when done. He states that he gets too lightheaded when sitting up. He is on 2L O2. Denies need for pain medication.
[2022-05-07] VITALS (8 sets, daily range): BP systolic 103–129; BP diastolic 58–80; PULSE 63–93; RESP 16–20; TEMP 36.4–37; O2SAT 91–97
[2022-05-07] MEDS: predniSONE 20 MG TABLET 40 MG PO (09:18)
[2022-05-07] MEDS: DOXYCYCLINE HYCLATE 100 MG CAPSULE PO ×2 (09:18→21:38)
[2022-05-07] MEDS: OSELTAMIVIR 30 MG CAPSULE PO ×2 (09:19→21:38)
--- NOTE | 2022-05-07 09:20 | PM.IMPN1 ---
Progress Note: A&P Assessment and plan (1) Acute on chronic respiratory failure with hypoxia and hypercapnia: Problem details: secondary to COPD exacerbation and influenza A Status: Acute (2) Influenza A: Status: Acute (3) COPD exacerbation: Status: Acute (4) Chronic sinusitis: Status: Chronic (5) Tobacco use disorder: Status: Chronic (6) Benign prostatic hyperplasia: Status: Chronic (7) Chronic obstructive pulmonary disease: Problem details: O2 dependent. NOT good judgement on self-titration per Dr. Ramey 12/15/20 Hosp DS note. Declined referral to pulmonology in the past Status: Chronic Plan 1. Acute on chronic/hypoxic resp failure; improving 2. CAP+Bronchiectasis 3. AECOPD 4. Tobacco use disorder 5. Influenza A 6. Generalized weakness Plan -continue steroids -continue nebs -continue antibiotics+tamiflu -tessalon/mucinex -scheduled nebs -back to baseline oxygen status -CT PE 05/06 negative for PE -Dispo-Home vs STR; currently too weak to get out of bed Time Spent With Patient Total time spent: 25 Subjective Date Seen: 05/07/22 Interval history: patient states he is too weak to get out of bed decreased energy endorses sob and cough CT PE study yesterday negative Exam Narrative: Exam Narrative: Gen: no acute distress, in bed HEENT: NCAT EOMI MMM CV: RRR s12 Lungs: Diminished breath sounds Abd: soft, nt, nd Neuro: alert, oriented; nonfocal screening exam Const: Vital Signs, click to edit/add: Vital Signs - 24 hr 05/06/22 11:14 05/06/22 11:14 05/06/22 12:00 Temperature Pulse Rate [Left B rachial] 79 Respiratory Rate 22 22 Blood Pressure [Le ft Arm] Pulse Oximetry 92 92 91 Oxygen Delivery Me thod Nasal Cannula Nasal Cannula Oxygen Flow Rate 3 3 2 05/07/22 01:00 05/07/22 01:00 05/07/22 01:00 Temperature 98.1 F Pulse Rate [Left B rachial] 79 72 Respiratory Rate 20 20 Blood Pressure [Le ft Arm] 118/74 Pulse Oximetry 92 92 Oxygen Delivery Me thod Nasal Cannula Oxygen Flow Rate 2 05/07/22 03:45 Temperature Pulse Rate [Left B rachial] 63 Respiratory Rate 18 Blood Pressure [Le ft Arm] Pulse Oximetry 97 Oxygen Delivery Me thod Nasal Cannula Oxygen Flow Rate 2 Labs Labs: Laboratory Results - last 24 hr 05/06/22 05/06/22 05/06/22 09:13 09:13 09:17 WBC 7.09 RBC 5.35 Hgb 15.9 Hct 47.4 MCV 89 MCH 30 MCHC 34 RDW Coeff of Kiki 12.5 Plt Count 261 Neut % (Auto) 82.9 H Lymph % (Auto) 12.6 L [place] % (Auto) 4.4 Eos % (Auto) 0.0 Baso % (Auto) 0.0 Neut # (Auto) 5.90 Lymph # (Auto) 0.90 [place] # (Auto) 0.30 Eos # (Auto) 0.00 Baso # (Auto) 0.00 Abs Immat Gran (auto) 0.01 Imm/Tot Granulo (auto) 0.1 VBG pH 7.401 VBG pCO2 48 VBG pO2 65.3 H VBG HCO3 30 H Sodium Potassium Chloride Carbon Dioxide BUN Creatinine Estimated Creat Clear Estimated GFR Glucose Calcium NT-Pro-B Natriuret Pep 831 H Procalcitonin 0.11 05/06/22 09:30 WBC RBC Hgb Hct MCV MCH MCHC RDW Coeff of Kiki Plt Count Neut % (Auto) Lymph % (Auto) [place] % (Auto) Eos % (Auto) Baso % (Auto) Neut # (Auto) Lymph # (Auto) [place] # (Auto) Eos # (Auto) Baso # (Auto) Abs Immat Gran (auto) Imm/Tot Granulo (auto) VBG pH VBG pCO2 VBG pO2 VBG HCO3 Sodium 132 L Potassium 4.3 Chloride 98 Carbon Dioxide 28 BUN 28 Creatinine 0.6 Estimated Creat Clear 71.12 Estimated GFR 103 Glucose 115 Calcium 8.4 NT-Pro-B Natriuret Pep Procalcitonin
[2022-05-07] MEDS: OXYCODONE 5 MG TABLET PO ×2 (09:23→21:38)
[2022-05-07 09:39] LABS: HCO3 VBG 34 mmol/L (21-28); PCO2 VBG 54 mmHG (40-50); PO2 VBG 30.9 mmHG (25-47); pH VBG 7.401 (7.32-7.43)
[2022-05-07 09:44] LABS: Hematocrit 49.8 % (37.0-53.0); Hemoglobin* 16.6 gm/dL (13.5-17.5); Lymphocytes Absolute Auto 1.88 K/uL (0.90-2.90); Lymphocytes Percent Auto 24.7 % (20-44); Mean Corpuscular HGB Conc 33 gm/dL (32-36); Mean Corpuscular Hemoglobin 30 pg (26-34); Mean Corpuscular Volume 89 fL (80-100); Monocytes Percent Auto 6.6 % (0.0-11.0); Neutrophils Absolute Auto 5.24 K/uL (1.7-7.0); Neutrophils Percent Auto 68.7 % (42.0-72.0); Platelet Count* 264 K/uL (140-440); RDW Coefficient of Variation % 12.7 % (11.5-15.5); Red Blood Count 5.58 m/uL (4.30-5.90); White Blood Count* 7.62 K/uL (4.50-11.00)
[2022-05-07] MEDS: METHYLPREDNISOLONE SOD SUCC 40 MG/ML IVP (09:54)
[2022-05-07 09:56] LABS: Slide Review Reflex No
[2022-05-07 10:14] LABS: Chloride* 100 mmol/L (96-114)
[2022-05-07 10:15] LABS: Potassium* 4.5 mmol/L (3.6-5.1); Sodium* 134 mmol/L (135-149)
[2022-05-07 10:17] LABS: Creatinine* 0.7 mg/dL (0.5-1.5); Est. Creatinine Clearance* 71.12; Estimated Glomerular Filt Rate 98 ml/min
[2022-05-07 10:18] LABS: Blood Urea Nitrogen* 35 mg/dL (7-30); Calcium* 8.7 mg/dL (8.4-10.6); Carbon Dioxide* 31 mmol/L (20-32); Glucose* 105 mg/dL (60-115)
[2022-05-07] MEDS: cefTRIAXone 1 GM in 0.9 % SODIUM CHLORIDE Mini-bag 100 ML IVPB (11:18)
[2022-05-07] MEDS: NICOTINE 14 mg PATCH 1 PATCH TRANSDERMA (13:11)
[2022-05-07] MEDS: IPRAT-ALBUT 0.5-2.5 MG/3 ML NEB 1 NEB IH ×3 (13:11→21:37)
--- NOTE | 2022-05-07 13:49 | RESP.RT ---
Pt remains on low flow oxygen. SPO2 90% on 2L. BBS decreased. Continue to monitor.
--- NOTE | 2022-05-07 19:00 | PC.NURSE ---
end of shift. pt has been unwilling to do things at times. no pain. it was a struggle to convenience him to get up in the chair. he is sob with activity,. Pt lays in bed on right side throughout shift. he got 5mg oxycodone 1x for no pain but for pt request. ? told pt that he can not poop in the bed and he needs to use the BSC, sl patent x2. he was better later int he shift. he is not eating much. encouraged po intake. .? He states that he gets too lightheaded when sitting up.? He is on 2L O2.?
[2022-05-07] MEDS: ENOXAPARIN 40 MG/0.4 ML INJ SUBCUT (21:37)
[2022-05-07] MEDS: ACETAMINOPHEN 325 MG TABLET 650 MG PO (21:40)
[2022-05-08] VITALS (10 sets, daily range): BP systolic 100–125; BP diastolic 60–90; PULSE 66–79; RESP 16–18; TEMP 36.5–36.8; O2SAT 90–96
--- NOTE | 2022-05-08 05:08 | PC.NURSE ---
0300-700 Pt slept during night, denies any pain, during vitals pt stated he feels 100% better, encouraged patient to ambulate to br, denies needing to go at this time.
[2022-05-08 07:38] LABS: HCO3 VBG 32 mmol/L (21-28); PCO2 VBG 50 mmHG (40-50); PO2 VBG 53.3 mmHG (25-47); pH VBG 7.413 (7.32-7.43)
[2022-05-08 07:44] LABS: Hematocrit 46.8 % (37.0-53.0); Hemoglobin* 15.7 gm/dL (13.5-17.5); Immature Granulocytes Abs Auto 0.01 K/uL (0.00-0.30); Immature Granulocytes Pct Auto 0.1 %; Lymphocytes Absolute Auto 1.81 K/uL (0.90-2.90); Lymphocytes Percent Auto 22.7 % (20-44); Mean Corpuscular HGB Conc 34 gm/dL (32-36); Mean Corpuscular Hemoglobin 30 pg (26-34); Mean Corpuscular Volume 89 fL (80-100); Monocytes Percent Auto 7.7 % (0.0-11.0); Neutrophils Absolute Auto 5.54 K/uL (1.7-7.0); Neutrophils Percent Auto 69.5 % (42.0-72.0); Platelet Count* 248 K/uL (140-440); RDW Coefficient of Variation % 12.7 % (11.5-15.5); Red Blood Count 5.28 m/uL (4.30-5.90); White Blood Count* 7.97 K/uL (4.50-11.00)
[2022-05-08 07:46] LABS: Slide Review Reflex No
[2022-05-08 08:01] LABS: Chloride* 100 mmol/L (96-114); Potassium* 4.1 mmol/L (3.6-5.1); Sodium* 134 mmol/L (135-149)
[2022-05-08 08:04] LABS: Blood Urea Nitrogen* 38 mg/dL (7-30); Carbon Dioxide* 31 mmol/L (20-32); Creatinine* 0.7 mg/dL (0.5-1.5); Est. Creatinine Clearance* 71.12; Estimated Glomerular Filt Rate 98 ml/min; Glucose* 106 mg/dL (60-115)
[2022-05-08 08:05] LABS: Calcium* 8.4 mg/dL (8.4-10.6)
[2022-05-08] MEDS: predniSONE 20 MG TABLET 40 MG PO (09:03)
[2022-05-08] MEDS: OSELTAMIVIR 30 MG CAPSULE PO ×2 (09:04→20:54)
[2022-05-08] MEDS: IPRAT-ALBUT 0.5-2.5 MG/3 ML NEB 1 NEB IH ×3 (09:04→17:16)
[2022-05-08] MEDS: DOXYCYCLINE HYCLATE 100 MG CAPSULE PO ×2 (09:04→20:53)
--- NOTE | 2022-05-08 10:36 | PC.SOCIAL ---
Addendum entered by SIDRA Tan 05/09/22 09:43: Pt. does not want a SNF. Original Note: Met with pt. to discuss discharge plans. Pt. has been a SBA assist but needs a lot of encouragement to move. Pt. lives with his spouse, two sons and their families all in the same home. Pt. states his spouse assists with some of his cares and he has a lot of support at home if he needs more assistance. Pt. is adamant he does now want a short-term rehab stay at discharge. The physician has been updated.
[2022-05-08] MEDS: cefTRIAXone 1 GM in 0.9 % SODIUM CHLORIDE Mini-bag 100 ML IVPB (11:43)
--- NOTE | 2022-05-08 11:53 | P.IMPN_ITS ---
Progress Note: A&P Assessment and plan (1) Lung consolidation: Problem details: possible on CXR 05/05/22 Status: Acute (2) Acute on chronic respiratory failure with hypoxia and hypercapnia: Problem details: secondary to COPD exacerbation and influenza A Status: Acute (3) Influenza A: Status: Acute (4) Tobacco use disorder: Status: Chronic (5) Benign prostatic hyperplasia: Status: Chronic (6) Chronic obstructive pulmonary disease: Problem details: O2 dependent. NOT good judgement on self-titration per Dr. Ramey 12/15/20 Hosp DS note. Declined referral to pulmonology in the past Status: Chronic Plan 1. Acute on chronic/hypoxic resp failure; improving 2. CAP+Bronchiectasis 3. AECOPD 4. Tobacco use disorder 5. Influenza A 6. Generalized weakness Plan 05/09 -continue steroids (DC prednisone switch to solumedrol) -continue nebs -continue antibiotics+tamiflu -tessalon/mucinex -scheduled nebs -back to baseline oxygen status -CT PE 05/06 negative for PE -Dispo-pending therapy recs; refusing SNF, OT recommending keeping in hospital 1 more day; possible discharge tomorrow to home? Subjective Date Seen: 05/08/22 Interval history: patient states sob improving still endorsing weakness generalized discussed with OT, OT recommending keeping in hospital due to high level assistance for ADLs Exam Narrative: Exam Narrative: Gen: No acute distress HEENT: NCAT EOMI MMM CV: RRR s1 s2 Lungs: diminished breath sounds Abd: soft, nt, nd Neuro: AOX3, nonfocal screening exam Const: Vital Signs, click to edit/add: Vital Signs - 24 hr 05/07/22 11:57 05/07/22 17:05 05/07/22 15:30 Temperature 97.5 F L Pulse Rate [Left B rachial] 85 79 Respiratory Rate 18 16 Blood Pressure [Le ft Arm] 129/80 Pulse Oximetry 95 93 Oxygen Delivery Me thod Nasal Cannula Oxygen Flow Rate 2 Fraction of Inspir ed Oxygen 05/07/22 15:30 05/07/22 19:00 05/07/22 23:00 Temperature 98.1 F 98.1 F Pulse Rate [Left B rachial] 67 93 Respiratory Rate 16 20 Blood Pressure [Le ft Arm] 105/58 L 107/75 Pulse Oximetry 92 91 91 Oxygen Delivery Me thod Nasal Cannula Nasal Cannula Oxygen Flow Rate 2 2 Fraction of Inspir ed Oxygen 30 05/07/22 23:00 05/07/22 23:00 05/08/22 03:00 Temperature 98 F 98 F Pulse Rate [Left B rachial] 93 86 68 Respiratory Rate 20 18 18 Blood Pressure [Le ft Arm] 100/60 Pulse Oximetry 94 96 Oxygen Delivery Me thod Nasal Cannula Nasal Cannula Oxygen Flow Rate 2 2 Fraction of Inspir ed Oxygen 05/08/22 08:01 05/08/22 08:01 05/08/22 07:30 Temperature 97.8 F Pulse Rate [Left B rachial] 66 66 Respiratory Rate 18 18 Blood Pressure [Le ft Arm] 111/64 Pulse Oximetry 93 93 Oxygen Delivery Me thod Nasal Cannula Oxygen Flow Rate 2 Fraction of Inspir ed Oxygen 05/08/22 09:58 05/08/22 11:10 Temperature 98.1 F Pulse Rate [Left B rachial] 72 Respiratory Rate 18 16 Blood Pressure [Le ft Arm] 114/69 Pulse Oximetry 93 95 Oxygen Delivery Me thod Nasal Cannula Nasal Cannula Oxygen Flow Rate 2 2 Fraction of Inspir ed Oxygen Labs Labs: Laboratory Results - last 24 hr 05/08/22 05/08/22 05/08/22 07:20 07:20 07:20 WBC 7.97 RBC 5.28 Hgb 15.7 Hct 46.8 MCV 89 MCH 30 MCHC 34 RDW Coeff of Kiki 12.7 Plt Count 248 Neut % (Auto) 69.5 Lymph % (Auto) 22.7 Harrison % (Auto) 7.7 Eos % (Auto) 0.0 Baso % (Auto) 0.0 Neut # (Auto) 5.54 Lymph # (Auto) 1.81 Harrison # (Auto) 0.60 Eos # (Auto) 0.00 Baso # (Auto) 0.00 Abs Immat Gran (auto) 0.01 Imm/Tot Granulo (auto) 0.1 VBG pH 7.413 VBG pCO2 50 VBG pO2 53.3 H VBG HCO3 32 H Sodium 134 L Potassium 4.1 Chloride 100 Carbon Dioxide 31 BUN 38 H Creatinine 0.7 Estimated Creat Clear 71.12 Estimated GFR 98 Glucose 106 Calcium 8.4
[2022-05-08] MEDS: METHYLPREDNISOLONE SOD SUCC 62.5 MG/ML (125) 40 MG IVP ×2 (12:16→17:16)
[2022-05-08] MEDS: NICOTINE 14 mg PATCH 1 PATCH TRANSDERMA (17:15)
[2022-05-08] MEDS: OXYCODONE 5 MG TABLET PO (17:16)
--- NOTE | 2022-05-08 20:01 | PC.NURSE ---
end of shift.?? ? no pain. he did not get out of bed today and he worked with OT and declined to do PT. ? he is sob with activity, on 2L nc all day. ? Pt lays in bed on right side he did sit uo in bed 2 times today. .? he got 5mg? oxycodone 1x per pt request.? ? ? sl patent x2.? he was better later int he shift. ? he is not eating much. ? encouraged po intake.? He states that he gets too lightheaded when sitting up.? He is on 2L O2.?
[2022-05-08] MEDS: ENOXAPARIN 40 MG/0.4 ML INJ SUBCUT (20:53)
[2022-05-09 00:13] VITALS: BP 112/67; PULSE 69; RESP 18; TEMP 37.2; O2SAT 94
[2022-05-09] MEDS: METHYLPREDNISOLONE SOD SUCC 62.5 MG/ML (125) 40 MG IVP ×3 (00:15→12:30)
[2022-05-09] MEDS: IPRAT-ALBUT 0.5-2.5 MG/3 ML NEB 1 NEB IH ×2 (00:18→08:46)
[2022-05-09 03:00] VITALS: BP 116/76; PULSE 69; RESP 18; TEMP 36.9; O2SAT 94
--- NOTE | 2022-05-09 06:39 | PC.NURSE ---
Status end of shift : Pt alert and oriented. Denies pain. Requesting PRN oxy be given before therapies. Encouraged to work with PT/OT today. BP stable. Remains on 2L NC at rest, 4L with activity. Ambulating with assist of 1 and walker/belt to bathroom. Pt moves slow and needs time to recover. Voiding without difficulty. No BM this shift, passing flatus. Pt reports sleeping well throughout the night. Possible d/c today pending therapy evaluations.
[2022-05-09 07:00] VITALS: BP 119/81; PULSE 75; RESP 18; TEMP 36.9; O2SAT 95
[2022-05-09] MEDS: DOXYCYCLINE HYCLATE 100 MG CAPSULE PO (08:46)
[2022-05-09] MEDS: OSELTAMIVIR 30 MG CAPSULE PO (08:46)
[2022-05-09] MEDS: OXYCODONE 5 MG TABLET PO (10:24)
[2022-05-09] MEDS: cefTRIAXone 1 GM in 0.9 % SODIUM CHLORIDE Mini-bag 100 ML IVPB (10:48)
[2022-05-09 11:00] VITALS: BP 137/95; PULSE 88; RESP 22; O2SAT 94
[2022-05-09] MEDS: 0.9 % SODIUM CHLORIDE 250 ml IV (11:00)
--- NOTE | 2022-05-09 11:14 | P.DS_ITS ---
DS: Providers Provider Date Seen: 05/09/22 Date of admission: 05/05/22 16:43 Primary care physician: Jose E Welsh MD Admitting Clinician: Audelia Silva MD Date of Discharge: 05/09/22 DS: Diagnosis Discharge Diagnosis (1) Influenza A: Status: Acute (2) Acute exacerbation of chronic obstructive pulmonary disease: Status: Acute (3) Acute on chronic respiratory failure with hypoxia and hypercapnia: Status: Acute Problem details: secondary to COPD exacerbation and influenza A (4) Tobacco use disorder: Status: Chronic (5) Lung consolidation: Status: Acute Problem details: possible on CXR 05/05/22 DS: Summary Hospital Course Hospital Course: 71-year-old male admitted to the hospital with worsening cough and dyspnea. Patient has baseline chronic obstructive lung disease requiring oxygen. On admission he was found to have acute on chronic hypoxic respiratory failure as well as CO2 retention. Influenza a test was positive. He required BiPAP initially for respiratory support. He has now weaned off BiPAP to 2 L per nasal cannula supplemental oxygen. He was treated for COPD with systemic corticos teroids and inhaled bronchodilators. He was treated for clinically suspected and radiologically suspected pneumonia with doxycycline. He was treated with Tamiflu for influenza. Over the subsequent few days of his hospital stay he reported getting back to or better than baseline with his breathing. Status at Discharge Overall status at discharge: patient is back to baseline Time Spent with Patient Time attestation: Total time spent providing and/or coordinating discharge services: Exam Narrative: Exam Narrative: He is alert and appears in no distress. He is oriented to his circumstances and clearly states his needs and desired plan of care. Speech is without obvious dyspnea. Respirations with diminished breath sounds throughout. A rare basilar crackle is noted. No marked wheezing. Cardiovascular: S1, S2, regular rate and rhythm. No murmur gallop or rub. Abdomen: Bowel sounds active. Abdomen is soft without tenderness. Extremities without edema. Const: Vital Signs, click to edit/add: Vital Signs - 24 hr 05/08/22 15:33 05/08/22 15:38 05/08/22 15:38 Temperature 97.7 F Pulse Rate [Left B rachial] 69 69 Respiratory Rate 16 16 Blood Pressure [Le ft Arm] 115/73 Pulse Oximetry 90 90 Oxygen Delivery Me thod Nasal Cannula Oxygen Flow Rate 2 Fraction of Inspir ed Oxygen 30 11/29/22 20:50 05/08/22 21:07 05/09/22 00:13 Temperature 98.3 F 98.9 F Pulse Rate [Left B rachial] 79 69 Respiratory Rate 18 18 Blood Pressure [Le ft Arm] 125/90 H 112/67 Pulse Oximetry 92 92 94 Oxygen Delivery Me thod Nasal Cannula Nasal Cannula Oxygen Flow Rate 2 2 Fraction of Inspir ed Oxygen 30 05/08/22 23:00 05/08/22 23:00 05/09/22 03:00 Temperature 98.4 F Pulse Rate [Left B rachial] 69 Respiratory Rate 18 18 Blood Pressure [Le ft Arm] 116/76 Pulse Oximetry 94 94 Oxygen Delivery Me thod Nasal Cannula Oxygen Flow Rate 2 Fraction of Inspir ed Oxygen 05/09/22 07:00 Temperature 98.5 F Pulse Rate [Left B rachial] 75 Respiratory Rate 18 Blood Pressure [Le ft Arm] 119/81 Pulse Oximetry 95 Oxygen Delivery Me thod Nasal Cannula Oxygen Flow Rate 4 Fraction of Inspir ed Oxygen DS: Data Imaging CT scan - chest: Radiologist's impression: [place] [address] Diagnostic Imaging Report Patient: Migue Mejía : 1950 Ordering Physician: Arya Tovar M.D. Date of Service: 05/06/22 Procedure(s): CT angio chest PE protocol Accession Number(s): [id number] cc: Arya Tovar M.D.; Jose E Welsh M.D.~ For Patients:? As a result of the Cures Act, medical imaging exams and procedure reports are released immediately into your electronic medical record.? You may view this report before your referring provider.? If you have questions, please contact your health care provider. Indication: Shortness of breath and hypoxia Technique: Volumetric multidetector CT images of the chest were obtained after the administration of IV contrast. 95 cc Isovue 370 low osmolar intravenous contrast Comparison: None available. Findings: The thoracic inlet and thyroid gland are unremarkable. The thoracic aorta is non aneurysmal with moderate scattered atherosclerotic calcification. There is no central filling defect to suggest pulmonary embolism. There are mildly prominent mediastinal and hilar lymph nodes with extensive calcified hilar and right paratracheal lymph nodes. There is marked central bronchial thickening with mucoid impaction of the lower lobe bronchi. There is moderate to severe emphysematous changes of the upper lobes left greater than right with basilar atelectasis and parenchymal scarring. There is no dense consolidation, effusion or pneumothorax. There is demonstration of a small nodule within the peripheral right lower lobe measuring 5.9 millimeters. The partially visualized upper abdomen demonstrates cholelithiasis. There are calcified splenic granulomas. The thoracic vertebral body heights demonstrate chronic endplate Schmorl`s defects and minimal anterosuperior deformity of the superior T5 level. There is flowing anterior osteophytosis. There is no significant spondylolisthesis or displaced fracture. Impression: Moderate to severe emphysematous changes of the predominantly upper lobes left greater than right with extensive central bronchial thickening and traction bronchiectasis commensurate with chronic bronchitis changes. No dense consolidation or pulmonary embolus. Calcified mediastinal and hilar lymph nodes likely representing sequela of granulomatous infection. Please note that all CT scans at this facility use dose modulation, iterative reconstruction, and/or weight-based dosing when appropriate to reduce radiation dose to as low as reasonably achievable. Dictated by Klever Tay MD @ 05/06/2022 4:35:49 PM Discharge Plan Discharge Disposition: Home, Self-Care Date of Admission: 05/05/22 16:43 Attending Provider on Discharge: Glen Whitaker Primary Care Provider: Jose E Welsh Condition: Improved Anticipated Discharge Date/Time: 05/09/22 11:26 Discharge Medications: New doxycycline hyclate 100 mg Capsule 100 mg PO BID Qty: 10 0RF nicotine 14 mg/24 hr Patch 24 Hour 1 patch transdermal Q24H Qty: 14 0RF oseltamivir [Tamiflu] 30 mg Capsule 30 mg PO BID Qty: 2 0RF Continued Incruse Ellipta 62.5 mcg/actuation blister with device 1 inh inhalation QDAY Qty: 90 3RF fluticasone furoate-vilanterol [Breo Ellipta] 200-25 mcg/dose blister with device 1 inh inhalation QDAY Qty: 90 3RF ipratropium-albuterol 0.5 mg-3 mg(2.5 mg base)/3 mL solution for nebulization 3 ml inhalation TID Qty: 360 3RF Changed prednisone 50 mg tablet 25 mg PO QDAY 6 Days Qty: 7 1RF Label Comments: started 05/04/22 Discontinued azithromycin [Zithromax Z-Cody] 250 mg tablet See Rx Instructions PO .COMPLEX Qty: 6 1RF Label Comments: started 05/04/22 Rx Instructions: For 250 mg dose pack: take 500 mg today (day 1), then 250 mg for 4 days (days 2-5) PO Discharge Orders: Discharge Order (Routine); Ordered 05/09/22 Ordered By: Glen Whitaker Additional Instructions: Use oxygen at 2 L per nasal cannula as needed for hypoxia or dyspnea. See your doctor in 1 week to recheck your symptoms. Activity Level: Activity as Tolerated Discharge Diet: Regular Follow Up Appointments: Jose E Welsh MD [Primary Care Provider] - Forms: [employer] Info Instructions
[2022-05-09 13:00] VITALS: BP 137/95; PULSE 88; RESP 22
--- NOTE | 2022-05-09 14:10 | PC.NURSE ---
Nursing care hours: 9950-3604 Pt this shift calm and cooperative, states he got the best nights sleep overnight. continues to lay in bed and rest. Lungs sounds coarse crackles, moist cough, not expelling anything. Pt anxious to get home to his own routine. Worked with PT/OT, getting up to the toilet and getting dressed. 94% with 3L. 5mg PRN oxycodone given per pt request prior to working with PT. L AC and L hand IV's dc'd prior to discharge. Instructions for home given to pt and family member. Discussed eating high protein meals for healing, increased fluids to thin secretions, and SS of worsening condition to be seen for. Pt receptive, all questions and concerns addressed, pt wheeled out to car in stable condition.
== END 2022-05-09 13:00 | disposition home or self-care (01) | DRG 189 ==
LOC: ED 13:05 → MEDSURG 05-06 14:25
PROVIDERS: Hospitalist; Admitting Provider Family Medicine; Emergency Provider Emergency Medicine; PCP Family Medicine; Visit Provider Family Medicine
DX: J96.21 Acute and chronic respiratory failure with hypoxia (principal); J10.08 Influenza due to other identified influenza virus with other specified pneumonia; J18.9 Pneumonia, unspecified organism; J44.0 Chronic obstructive pulmonary disease with (acute) lower respiratory infection; J44.1 Chronic obstructive pulmonary disease with (acute) exacerbation; J96.22 Acute and chronic respiratory failure with hypercapnia; Z99.81 Dependence on supplemental oxygen; F17.210 Nicotine dependence, cigarettes, uncomplicated; J32.8 Other chronic sinusitis
CPT/HCPCS: 36415; 71045; 71260; 80048; 80076; 82803; 83605; 83880; 84145; 84484; 85025; 85379; 86140; 87502; 87634; 87635; 93005; 94640; 94660; 94761; 97116; 97161; 97165; 97535; 99284; 99285; A9270; J0696; J1650; J2920; J2930; J7050; J7512; Q9967; S4990

== ENCOUNTER 2023-02-22 11:14 | Outpatient (CLI) | payer MEDICARE, SELFPAY | END 2023-02-22 11:15 | disposition home or self-care (01) | PROVIDERS: PCP Family Medicine; Visit Provider Family Medicine | DX: I50.9 Heart failure, unspecified (principal); J44.9 Chronic obstructive pulmonary disease, unspecified | CPT/HCPCS: 80048; 83880 ==